=== PATIENT | female | born 1980 | race Caucasian/White ===

== ENCOUNTER 2016-11-04 11:02 | Emergency (ER) ==
[2016-11-04 11:08] VITALS: BP 121/67
--- NOTE | 2016-11-04 12:06 | PROVIDER DOCUMENTATION ---
HPI-Respiratory General - General Source: patient - History of Present Illness-Resp Quality of Pain: reports: none Severity in ED: reports: mild Onset/Duration: reports: 5 days ago Timing: reports: still present, constant Exposure: reports: smoke exposure Cough Quality/Degree: reports: mild, productive cough Episode Frequency: no prior episodes Modifying Factors: improves with: nothing Associated Symptoms: reports: cough, fever/chills, flu-like symptoms, muscle/ bodyaches <Jami Sánchez Jr - Last Filed: 11/04/16 12:01> <Antonia Chau - Last Filed: 11/04/16 12:22> - General Chief Complaint: Cold Symptoms Stated Complaint: COUGH/CONGESTION/SOB Time Seen by Provider: 11/04/16 11:33 Allergies/Adverse Reactions: Patient Allergies Allergy/AdvReac Type Severity Reaction Status Date / Time Penicillins Allergy HIVES Verified 07/06/16 12:04 pregabalin [From Lyrica] AdvReac Unknown Verified 07/06/16 12:04 ziprasidone HCl * AdvReac DIARRHEA Verified 07/06/16 12:04 [From Geodon] ziprasidone mesylate * AdvReac DIARRHEA Verified 07/06/16 12:04 [From Geodon] Home Medications: Home Medication List Medication Instructions Recorded Confirmed Last Taken Type Doxycycline 100 mg PO BID #20 tablet 11/04/16 Unknown Rx - History of Present Illness-Resp Nature of Presenting Problem: 36 y/o WF with no PMHx presents to the ED with a 4-5 day h/o nasal/chest congestion, productive cough and generalized malaise. 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 No other issues. (Jami Sánchez Jr) Review of Systems - Adult - REVIEW OF SYSTEMS - ADULT Constitutional: reports: chills, fever Eyes: reports: no symptoms reported Ears, Nose, Mouth & Throat: reports: no symptoms reported Cardiovascular: reports: no symptoms reported Respiratory: reports: cough Gastrointestinal: reports: no symptoms reported Genitourinary: reports: no symptoms reported Musculoskeletal: reports: muscle aches Integumentary: reports: no symptoms reported Neurological: reports: no symptoms reported Psychiatric: reports: no symptoms reported Endocrine: reports: no symptoms reported Hematologic/Lymphatic: reports: no symptoms reported Allergic/Immunologic: reports: no symptoms reported <Jami Sánchez Jr - Last Filed: 11/04/16 12:01> Past History - Adult - PAST MEDICAL HISTORY-ADULT Review of Records: reports: Old Records Reviewed, Nursing Assessment Review, Medications Reviewed Major Childhood Illnesses: reports: denies history Cardiovascular: reports: denies history Respiratory: reports: denies history Gastrointestinal: reports: denies history Obstetrical/Gynecological: reports: denies history Genitourinary: reports: denies history Musculoskeletal: reports: denies history Neurological: reports: denies history Endocrine/Immune: reports: denies history Other Conditions: reports: denies history - IMMUNIZATION STATUS Childhood Immunizations: See Nurse Assessment Flu Vaccine: See Nurse Assessment - FAMILY HISTORY Family History: reviewed, not pertinent - SOCIAL HISTORY Smoking: cigarettes, less than 1 pack/day Substance Use: none presently/history of abuse Alcohol Use Frequency: never Living Situation: family <Jami Sánchez Jr - Last Filed: 11/04/16 12:01> Physical Exam-General - PHYSICAL EXAM-ADULT Initial Vital Signs Reviewed: Yes - CONSTITUTIONAL General Appearance: alert, no apparent distress - EYES Eyes: PERRL/EOMI, pink conjunctivae - HEAD, EARS, NOSE, MOUTH & THROAT HENMT: normocephalic/atraumatic, moist mucous membranes - NECK Neck: non-tender, full range of motion, supple - RESPIRATORY Respiratory: chest non-tender, lungs clear, normal breath sounds - CARDIOVASCULAR Cardiovascular: normal peripheral pulses, regular rate, rhythm, no edema - GASTROINTESTINAL (ABDOMEN) Abdominal Exam: normal bowel sounds, non tender, soft - LYMPHATIC Lymphatic: no adenopathy - MUSCULOSKELETAL Back Exam: normal inspection, no vertebral tenderness Extremity: normal range of motion, non-tender - SKIN Integumentary: normal color, normal turgor, warm/dry - NEUROLOGIC Neurologic: grossly normal, no motor/sensory deficits - PSYCHIATRIC Psych/Mental Status: normal mood/affect, normal thought content, normal thought process, oriented x 3 <Antonia Chau - Last Filed: 11/04/16 12:22> Departure - Departure Time of Disposition Order: 12:06 Certified Medical Emergency: Emergent <Jami Sánchez Jr - Last Filed: 11/04/16 12:01> <Antonia Chau - Last Filed: 11/04/16 12:22> - Departure DIAGNOSIS: Sinusitis Qualifiers: Sinusitis location: frontal Chronicity: acute Recurrence: non-recurrent Qualified Code(s): J01.10 - Acute frontal sinusitis, unspecified Disposition: HOME 01 Condition: Good Additional Instructions: PT TO USE THE PHYSICIAN REFERRAL LINE TO LOCATE PCP AND ESTABLISH CARE. ED Follow Up Instructions: You have been treated by a care provider in the Emergency Department. These instructions are being provided to you so you can have an understanding of how to care for yourself upon discharge. Upon discharge from the Emergency Department, you are responsible for making arrangements for follow-up care by a physician of your choice. Take all prescribed medications as directed. Return to the Emergency Department immediately for any new or worsening symptoms. You may call the Physician Referral phone number at [phone] to obtain a list of Physicians who are taking new patients. Prescriptions: Doxycycline 100 mg PO BID #20 tablet Referrals: Kevin Dee MD [STAFF PHYSICIAN] - None,PCP [Primary Care Provider] - Forms: Return to School/Parent Work Instructions: Sinusitis, [id number], Doxycycline tablets or capsules Physician Attestation
[2016-11-04] MEDS ORDERED: DOXYCYCLINE PO ONE (12:10)
[2016-11-04] MEDS ORDERED: DOXYCYCLINE ONE (12:14)
== END 2016-11-04 12:38 | disposition home or self-care (01) ==
LOC: P.ED 11:02
DX: J01.10 Acute frontal sinusitis, unspecified (principal); R05 Cough; R50.9 Fever, unspecified; M79.1 Myalgia; R09.81 Nasal congestion; R06.02 Shortness of breath; R09.89 Other specified symptoms and signs involving the circulatory and respiratory systems; R09.3 Abnormal sputum; R53.81 Other malaise; F17.210 Nicotine dependence, cigarettes, uncomplicated
CPT/HCPCS: 87804; 99283